=== PATIENT | male | born 2000 | race Caucasian/White ===

== ENCOUNTER 2021-01-17 11:55 | Emergency (ER) | payer BC, SELFPAY ==
[2021-01-17 11:56] VITALS: BP 151/103; PULSE 93; RESP 18; TEMP 36.8; O2SAT 97; BMI 34.9
[2021-01-17 12:00] VITALS: O2SAT 97
--- NOTE | 2021-01-17 12:05 | HMH.EDGENADL ---
ED Disposition Clinical Impression: Lymphadenopathy Disposition: Home, Self-Care Condition on Discharge: Good Instructions: DI for Acute Abdominal Pain Referrals: PCP,No [Primary Care Provider] - 3 days Time of Disposition: 15:12 - Critical Care Critical Care Time: No Attestation: On , the high probability of a clinically significant, sudden or life threatening deterioration of the following system(s) required my full and direct attention, intervention and personal management. The time I documented below is in addition to time spent performing reported procedures but includes the following listed in this critical care notation. Medical Decision Making - Zaid Inquiry Pt receiving controlled substance: No Vital Signs: 01/17/21 11:56 01/17/21 12:00 01/17/21 14:51 Temperature 98.3 F Temperature Source Oral Pulse Rate Pulse Rate [Left Radial] 93 H Respiratory Rate 18 Blood Pressure 153/96 H Blood Pressure [Right Arm] 151/103 H Blood Pressure Mean 116 Blood Pressure Mean [Right Arm] 119 Blood Pressure Source [Right Arm] Automatic Cuff Blood Pressure Position [Right Arm] Sitting 02 Sat by Pulse Oximetry 97 97 Oxygen Delivery Method Room Air 01/17/21 14:52 Temperature Temperature Source Pulse Rate 84 Pulse Rate [Left Radial] Respiratory Rate Blood Pressure Blood Pressure [Right Arm] Blood Pressure Mean Blood Pressure Mean [Right Arm] Blood Pressure Source [Right Arm] Blood Pressure Position [Right Arm] 02 Sat by Pulse Oximetry 98 Oxygen Delivery Method - Lab Data Lab Results 01/17/21 12:10: Urine Color Yellow, Urine Appearance Clear, Urine pH 6.0, Ur Specific [place] 1.025, Urine Protein Trace, Urine Glucose (UA) Negative, Urine Ketones Negative, Urine Blood Negative, Urine Nitrate Negative, Urine Bilirubin Negative, Urine Urobilinogen 0.2, Ur Leukocyte Esterase Negative, Urine RBC None, Urine WBC 3-5, Ur Squamous Epith Cells 3-5, Urine Bacteria None 01/17/21 12:10: WBC 8.0, RBC 5.54, Hgb 15.9, Hct 49.0, MCV 88.6, MCH 28.7, MCHC 32.4, RDW 13.4, Plt Count 216, MPV 8.1, Neut % (Auto) 76.0, Lymph % (Auto) 15.6, [place] % (Auto) 5.7, Eos % (Auto) 2.3, Baso % (Auto) 0.3, Neut # (Auto) 6.1, Lymph # (Auto) 1.3, [place] # (Auto) 0.5, Eos # (Auto) 0.2, Baso # (Auto) 0.0 Result diagrams: 01/17/21 12:10 - US Data US Images: Pelvis Findings Narrative: Single large lymph node with inflammatory reaction appreciated Medical Decision Narrative: 20yo M presents for right inguinal pain that he is concerned is a hernia. Patient denies any significant heavy lifting or more vigorous activity than usual. Lesion appeared while the patient was sleeping. No bug bite. Differential diagnosis includes but is not limited to: Hernia, enlarged lymph node, abscess. Patient is sent for an ultrasound for further characterization. Ultrasound most consistent with inflamed lymph node. Patient's vital signs are unremarkable he is appropriate stable for discharge home at this time. Discussed warm compresses and activity as tolerated. Discussed follow-up with PCP by the end of the week. Counseled the patient and his mother at bedside on return to emergency department parameters. General Adult HPI - General Chief complaint: Abdominal Pain Stated complaint: possible hernia pain in groin area Time Seen by Provider: 01/17/21 12:05 Mode of Arrival: Family Vehicle Limitations: No Limitations Description of Symptoms (Recalled from ER Triage Doc. by RN): Patient c/o low abdomen/groin pain that radiates into right testicle since last night. - History of Present Illness HPI narrative: 20yo M no significant medical history presents the emergency department secondary to a painful lump in his right groin. Lump has been there since at least Saturday. He denies fever, nausea/vomit/diarrhea. Denies local skin changes. Denies any known bug bites or other lesions. Denies previous episode. - Related Rocky
[2021-01-17 12:37] LABS: Microscopic, Urine URINE MICROSCOPIC (MICROSCOPIC)
[2021-01-17 12:41] LABS: Appearance,Urine CLEAR (Clear); Basophils % 0.3 % (0.1-2.0); Bilirubin,Urine Negative (Negative); Blood, Urine Negative (Negative); Color,Urine YELLOW (Yellow); Eosinophils # 0.2 K/mm3 (0.0-0.4); Eosinophils % 2.3 % (0.1-12.0); Glucose,Urine (UA) Negative (Negative); Hemoglobin 15.9 g/dL (14.1-18.0); Ketones,Urine Negative (Negative); Leukocyte Esterase,Urine Negative (Negative); Lymphocytes # 1.3 K/mm3 (0.7-4.5); Lymphocytes % 15.6 % (10-50); Mean Corpuscular HGB Conc 32.4 g/dL (31.8-35.4); Mean Corpuscular Hemoglobin 28.7 pg (27.0-31.2); Mean Corpuscular Volume 88.6 fl (80-94); Mean Platelet Volume 8.1 fl (7.4-10.4); Monocytes # 0.5 K/mm3 (0.1-1.0); Monocytes % 5.7 % (1.7-9.3); Neutrophils # 6.1 K/mm3 (1.8-7.8); Nitrate,Urine Negative (Negative); Platelet Count 216 K/mm3 (142-424); Protein,Urine TRACE (Negative); Red Blood Count 5.54 M/mm3 (4.60-6.20); Red Cell Distribution Width 13.4 % (11.5-17.5); Specific Gravity, Urine 1.025 (1.005-1.030); Urobilinogen,Urine 0.2 EU/dl (0.2)
--- NOTE | 2021-01-17 13:42 | PC.NURSE ---
MD at bedside discussing care.
--- NOTE | 2021-01-17 13:44 | US_ITS ---
PROCEDURE: US EXTREMITY RT LIMITED CLINICAL INDICATION: lump; r/o abscess vs hernia vs lymphnode Palpable abnormality in the right groin COMPARISON: No exams were available for comparison FINDINGS: Multiple small nodes are present in the right inguinal region. The largest measures 2 1 cm. There is isoechoic ill-defined tissue around this node consistent with inflammatory changes. No abscess or other significant anomaly evident. IMPRESSION: Mild right inguinal adenopathy with perinodal inflammation. No abscess apparent Dictated by: Antwan Dougherty MD 01/17/2021 14:26 Antwan Dougherty MD in [place] 01/17/2021 14:26
[2021-01-17 14:51] VITALS: BP 153/96
[2021-01-17 14:52] VITALS: PULSE 84; O2SAT 98
[2021-01-17 15:20] VITALS: BP 143/86; PULSE 78; RESP 18; TEMP 36.8; O2SAT 98
[2021-01-18 22:29] LABS: Neisseria gonorrhoeae, NAA Negative (Negative)
== END 2021-01-17 15:21 | disposition home or self-care (01) ==
PROVIDERS: Emergency Provider Family Medicine
DX: R59.0 Localized enlarged lymph nodes (principal)
CPT/HCPCS: 76882; 81001; 85025; 87491; 87591; 99283

== ENCOUNTER 2022-06-02 09:46 | Emergency (ER) | payer BC, SELFPAY ==
[2022-06-02 10:08] VITALS: BP 152/96; PULSE 104; RESP 16; TEMP 36.8; O2SAT 99; BMI 35.6
--- NOTE | 2022-06-02 10:20 | HMH.EDUTC ---
[facility] [place] Disposition Clinical Impression: Viral syndrome Disposition: Home, Self-Care Condition on Discharge: Good Instructions: DI for Viral Syndrome, Preventing the Spread of Coronavirus Discharge Instructions Additional Instructions: Drink plenty of fluids. Take tylenol or ibuprofen for pain or fever. Take the medications as directed. Follow up with your regular doctor. GO TO THE ER FOR ANY WORSENING SYMPTOMS Quarantine until you know the results of your covid-19 test. Notify your school or workplace of your results and follow their instructions regarding return to work/school. Prescriptions: Ondansetron [Zofran 4mg ODT] 4 mg PO Q8HP PRN #12 tab PRN Reason: Nausea Transmission Status: Received by [id number] Benzonatate [Benzonatate 100mg cap] 100 mg PO TIDP PRN #30 cap PRN Reason: Cough Transmission Status: Received by [id number] Referrals: Provider,Referral, [Primary Care Provider] - Forms: Work/School Release Time of Disposition: 10:23 Medical Decision Making - Medical Records Medical records reviewed: No: I reviewed the patient's medical records. - Zaid Inquiry Pt receiving controlled substance: No Vital Signs: 06/02/22 10:08 06/02/22 10:25 Temperature 98.3 F 98.3 F Temperature Source Oral Pulse Rate 104 H Pulse Rate [Left] 104 H Respiratory Rate 16 16 Blood Pressure 152/96 H Blood Pressure [Right Arm] 152/96 H Blood Pressure Mean [Right Arm] 114 02 Sat by Pulse Oximetry 99 [facility] [place] HPI - General Stated complaint: fever, sore throat, cough, no smell, weakness Time Seen by Provider: 06/02/22 10:21 Mode of Arrival: Ambulatory Source of Information: Patient Limitations: No Limitations Description of Symptoms (Recalled from Triage Doc. by RN): patient comes in for covid test. patient was exposed by a coworker. symptoms include cough, fever, loss of smell, congestion. symptoms began yesterday. HEENT Symptoms (Recalled from RN notes): Yes Resp Symptoms (Recalled from RN notes): Yes Skin Symptoms (Recalled from RN notes): No MS Symptoms (Recalled from RN notes): No Functional Status (Recalled from RN notes): n/a - Related Data Home Medications Medication Instructions Recorded Confirmed lisinopriL [Lisinopril] 10 mg PO DAILY 01/17/21 01/17/21 Previous Rx's Medication Instructions Recorded Benzonatate [Benzonatate 100mg 100 mg PO TIDP PRN #30 cap 06/02/22 cap] Ondansetron [Zofran 4mg ODT] 4 mg PO Q8HP PRN #12 tab 06/02/22 Allergies Allergy/AdvReac Type Severity Reaction Status Date / Time No Known Allergies Allergy Verified 06/02/22 10:12 - Worker's Comp Is this a Worker's Comp case?: No [facility] History - Hepatitis A Screen Attestation statement:: This patient has been screened for Hepatitis A risk factors. I have reviewed the patient's past medical history: Yes - Social History Smoking Status: Never smoker Alcohol Intake: never Occupational Status: employed ROS Obtained: Yes All systems reviewed & no additional complaints - Constitutional Constitutional: Reports as per HPI - Eyes Eyes: Denies eye discharge - ENT Ears, Nose, Mouth, and Throat: Reports as per HPI - Cardiovascular Cardiovascular: Denies chest pain - Respiratory Respiratory: Denies chest congestion, Reports cough Physical Exam - General General appearance: alert, in no apparent distress - Head Head exam: atraumatic, normocephalic, normal inspection - Eye Eye exam: Present: normal appearance, PERRL, EOMI - ENT ENT exam: Present: normal exam, normal oropharynx, mucous membranes moist, TM's normal bilaterally, normal external ear exam - Neck Neck exam: Present: normal inspection, full ROM, trachea midline. Absent: meningismus, lymphadenopathy - Chest Chest inspection: Present: normal inspection, symmetric chest wall rise. Absent: tenderness - Respiratory Respiratory exam: Present: normal lung
[2022-06-02 10:25] VITALS: BP 152/96; PULSE 104; RESP 16; TEMP 36.8
== END 2022-06-02 10:27 | disposition home or self-care (01) ==
PROVIDERS: Emergency Provider Nurse Practitioner Family
DX: B34.9 Viral infection, unspecified (principal); Z20.822 Contact with and (suspected) exposure to COVID-19; R50.9 Fever, unspecified; J02.9 Acute pharyngitis, unspecified; R05.9 Cough, unspecified
CPT/HCPCS: 99212; C9803; G0463; U0003; U0005

== ENCOUNTER 2022-10-18 14:08 | Emergency (ER) | payer BC, SELFPAY ==
--- NOTE | 2022-10-18 15:35 | EXP.UTC ---
Discharge Plan Disposition Patient Disposition: Home, Self-Care Condition: Good Prescriptions Prescriptions: New azithromycin [Zithromax] 250 mg tablet 250 mg PO UD DOSE PK Qty: 6 0RF Rx Instructions: Take two (2) tablets today, then one (1) tablet days #2 thru #5 benzonatate [benzonatate] 100 mg capsule 100 mg PO TIDP PRN (Reason: Cough) Qty: 30 0RF methylprednisolone 4 mg Tablets,Dose Pack 4 mg PO DIRECTED Qty: 21 0RF oseltamivir [Tamiflu] 75 mg capsule 75 mg PO BID Qty: 10 0RF No Action amlodipine 5 mg tablet 5 mg PO DAILY Label Comments: TAKE 1 TABLET BY MOUTH DAILY Referrals Follow up/Referrals: Provider,Referral, MD [Primary Care Provider] - See instructions Activity Restrictions/Add. Instructions Additional Instructions/Restrictions: Drink plenty of fluids. Take tylenol or ibuprofen for pain or fever. Take the medications as directed. Follow up with your regular doctor. GO TO THE ER FOR ANY WORSENING SYMPTOMS Clinical Impressions Clinical Impression: Viral syndrome, Bronchitis Stand Alone Forms Stand Alone Forms: Work/School Release Instructions Patient Instructions: DI for Pharyngitis/Tonsillopharyngitis -- Adult Discharge ED Provider: Candelario Huffman [facility] [place] [place] HPI General Stated complaint: Cough, fever, SOA, Congestion Time Seen by Provider: 10/18/22 15:34 History of Present Illness Provider Complaint: He states that for the past 2 days he has had chest congestion, sinus congestion, chills, sore throat and body aches. He has been exposed to both flu and strep. Related Data Home Medications Medication Instructions Recorded Confirmed amlodipine 5 mg tablet 5 mg PO DAILY Hypertension 10/18/22 10/18/22 Previous Rx's Medication Instructions Recorded azithromycin 250 mg tablet 250 mg PO UD DOSE PK #6 tabs 10/18/22 (Zithromax) benzonatate 100 mg capsule 100 mg PO TIDP PRN Cough #30 caps 10/18/22 methylprednisolone 4 mg tablets in 4 mg PO DIRECTED #21 tabs 10/18/22 a dose pack oseltamivir 75 mg capsule (Tamiflu) 75 mg PO BID #10 caps 10/18/22 Allergies Allergy/AdvReac Type Severity Reaction Status Date / Time No Known Allergies Allergy Verified 06/02/22 10:[address] [facility] Disclaimer: The information contained in this section may have been updated after the patient was seen, as this information can be updated by other users. Medical History Hypertension Social History Smoking Status: Never smoker alcohol intake: never current occupational status: employed Travel in the last 8 weeks: None ROS Obtained: Yes All systems reviewed & no additional complaints except as documented Constitutional Constitutional: Reports chills and Reports fever(s) Eyes Eyes: Denies eye discharge ENT Ears, Nose, Mouth, and Throat: Reports as per HPI Cardiovascular Cardiovascular: Denies chest pain Respiratory Respiratory: Denies chest congestion and Reports cough Gastrointestinal Gastrointestingal: Reports nausea; Denies abdominal pain, constipation, cramping, diarrhea or vomiting Musculoskeletal Musculoskeletal: Denies arthralgias Integumentary/Breasts Skin/Breast: Denies rash Neurologic Neurologic: Denies paresthesias Physical Exam General General appearance: alert and in no apparent distress Head Head exam: atraumatic, normocephalic and normal inspection Eye Eye exam: Present normal appearance, PERRL and EOMI ENT ENT exam: Present mucous membranes moist and normal external ear exam Expanded ENT Exam TM/Canal exam: Bilateral TM: erythema and bulging Nose exam: Absent sinus tenderness Mouth exam: Present normal external inspection; Absent drooling Teeth exam: Present normal inspection Throat exam: Present tonsillar erythema, tonsillomegaly and tonsillar exudate Neck Neck exam: Present normal inspection, full ROM and t
[2022-10-18 15:40] VITALS: BP 141/84; PULSE 89; RESP 19; TEMP 37; O2SAT 98; BMI 37.0
[2022-10-18 15:49] LABS: Coronavirus 19, PCR Not Detected (NotDetected); Influenza B, PCR Not Detected (NotDetected)
[2022-10-18 16:10] VITALS: BP 141/84; PULSE 89; RESP 19; TEMP 37; O2SAT 98
[2022-10-18 17:21] LABS: Influenza A, PCR Detected (NotDetected)
== END 2022-10-18 16:14 | disposition home or self-care (01) ==
PROVIDERS: Emergency Provider Nurse Practitioner Family
DX: J10.1 Influenza due to other identified influenza virus with other respiratory manifestations (principal); J40 Bronchitis, not specified as acute or chronic
CPT/HCPCS: 99212; C9803; G0463; U0003; U0005

== ENCOUNTER 2025-09-16 14:20 | Emergency (ER) | payer BC, SELFPAY ==
[2025-09-16 14:20] VITALS: BP 156/99; PULSE 87; RESP 14; TEMP 37.1; O2SAT 100; BMI 35.6
--- NOTE | 2025-09-16 14:38 | ED_ITS ---
<Statement entered by Jayy Pickett MD - 09/16/25 15:35> I was consulted by the KRISH, and we discussed the complexity of the problems being addressed. I approved the treatment and management plan for this patient's care in the emergency department, thus performing a substantive portion of the medical decision making. Jayy Pickett MD, CHRISTINA, FACEP Discharge Plan Disposition Patient Disposition: Home, Self-Care Condition: Good Prescriptions Prescriptions: New Preparation H 0.25-14-74.9 % ointment 1 applic [place] DAILY PRN (Reason: hemorrhoids) Qty: 28 0RF No Action amlodipine 5 mg tablet 5 mg PO DAILY Patient Comments: TAKE 1 TABLET BY MOUTH DAILY azithromycin [Zithromax] 250 mg tablet 250 mg PO UD DOSE PK Qty: 6 0RF Rx Instructions: Take two (2) tablets today, then one (1) tablet days #2 thru #5 benzonatate [benzonatate] 100 mg capsule 100 mg PO TIDP PRN (Reason: Cough) Qty: 30 0RF methylprednisolone 4 mg Tablets,Dose Pack 4 mg PO DIRECTED Qty: 21 0RF oseltamivir [Tamiflu] 75 mg capsule 75 mg PO BID Qty: 10 0RF Referrals Follow up/Referrals: Cierra Vines APRN [Primary Care Provider, Medical] - See instructions Nelson Ba II, MD [Staff Physician, Gastroenterology] - See instructions Activity Restrictions/Add. Instructions Additional Instructions/Restrictions: Please return to the emergency department with any worsening signs or symptoms. Please use Preparation H as needed for symptomatic relief. Please follow-up with your PCP or GI physician in the upcoming days/weeks if symptomatology does not improve. I recommend utilizing Epsom salts baths as well as stool softeners for other symptomatic relief Clinical Impressions Clinical Impression: Bleeding external hemorrhoids Instructions Patient Instructions: DI for Hemorrhoids, DI for Anal Fissure Print Language Print Language: Croatian Discharge ED Provider: Jayy Pickett General Adult HPI General Chief complaint: GI Bleed Stated complaint: rectal bleeding Time Seen by Provider: 09/16/25 14:37 Mode of Arrival: Ambulatory Source of Information: Patient Limitations: No Limitations History of Present Illness HPI narrative: 24-year-old male presents the emergency department with hematochezia that he noticed last night, bright red blood not enough to fill up the toilet bowl, noticed it on his toilet paper , patient did have some anal pain on Saturday and Saturday of this week, no pain over the last couple of days. No overt melena, no hematemesis no hemoptysis no abdominal pain no nausea no vomiting no diarrhea, no fever no chills no chest pain or shortness of breath, no urinary symptomatology, no hematuria, patient denies any alcohol tobacco or drug use, patient's past medical history excision with hypertension and prior brain surgery for cyst fenestration. Otherwise unremarkable past medical history. Initial triage vitals are unremarkable. Please note that above description of symptoms, in this electronic medical record under categorization of recalled from ER triage doctor by RN are reflective of an initial nursing assessment, however, is not reflective of my full history and physical exam that was personally taken and clarified. Co nsequentially, this preceding description of symptoms, which may include the patient's categorized chief complaint in the EMR, do not reflect my personal clinical impression, and the ultimate description of history of present illness and patient stated complaints should be deferred to this section of the note. Unless stated otherwise or congruent with this section of the note, additional signs, symptoms, or incongruence should be interpreted as inaccurate with my clinical impression. Onset (ago): day(s) Related Data Home Medications ?Medication ?Instructions ?Recorded ?Confirmed amlodipine 5 mg tablet 5 mg PO DAILY Hypertension 1 12/19/21 10/18/22 Previous Rx's ?Medication ?Instructions ?Recorded azithromycin 250 mg tablet 250 mg PO UD DOSE PK #6 tab s 10/18/22 (Zithromax) benzonatate 100 mg capsule 100 mg PO TIDP PRN Cough #3 0 caps 10/18/22 methylprednisolone 4 mg tablets in 4 mg PO DIRECTED #21 tabs 10/18/22 a dose pack oseltamivir 75 mg capsule (Tamiflu) 75 mg PO BID #10 c aps 10/18/22 phenylephrine 0.25 %-mineral oil 1 applic [place] DAILY PRN hemorrhoids 09/16/25 14 %-petrolatm 74.9 % rectal #28 grams ointment (Preparation H) Allergies Allergy/AdvReac Type Severity Reaction Status Date / Time No Known Allergies Allergy Verified 09/16/25 14:49 [facility] Disclaimer: The information contained in this section may have been updated after the patient was seen, as this information can be updated by other users. Medical History Hypertension Social History Smoking Status: Never smoker alcohol intake: never current occupational status: employed Travel in the last 8 weeks?: None Have you lived/traveled outside US in past 30 days?: No Contact w/someone who lives/traveled outside US past 30 days?: No Exposure to someone with infectious disease in past 14 days?: No Do you have a fever (greater than 100.4 F or 38 C)?: No Have you tested positive for COVID-19?: No Exposed to someone with COVID-19 in past 14 days?: No Do you have a sore throat?: No Do you have a cough?: No Do you have any weakness?: No Do you have any diarrhea?: No Are you experiencing any unusual bleeding?: No Do you have any muscle aches/pain?: No Do you have any abdominal pain?: No Are you experiencing loss of taste or smell?: No Other Medical History Have you received the Flu Vaccine for this season: No Have you received the Pneumonia Vaccine: No ROS Obtained: Yes All systems reviewed & no additional complaints except as documented Physical Exam General General appearance: alert and in no apparent distress Head Head exam: atraumatic and normocephalic Eye Eye exam: Present PERRL and EOMI ENT ENT exam: Present mucous membranes moist Neck Neck exam: Present normal inspection Chest Chest inspection: Present normal inspection and symmetric chest wall rise Respiratory Respiratory exam: Present normal lung sounds bilaterally; Absent respiratory distress Cardiovascular Cardiovascular exam: Present regular rate and normal rhythm Abdominal Exam Abdominal exam: Present soft; Absent tenderness, guarding, rebound or rigidity Rectal Exam Rectal exam: Present bloody stool and hemorrhoids comment: I along with nurse payment manager performed rectal examination at the bedside. There appears to be a mild hemorrhoid that is not strangulated not thrombosed at approximately 4:35 PM, there is some active bleeding/possibly small active bleeding anal fissure Extremities Exam Extremities exam: Present normal inspection Neurological Exam Neurological exam: Present alert and oriented X3 Psychiatric Psychiatric exam: Present normal affect Skin Skin exam: Present warm and dry Medical Decision Making Medical Records Medical records reviewed: Yes I reviewed the patient's medical records. Screening: Per USPSTF and CDC recommendations, given the prevalence of disease in our region, it is our hospital?s policy to screen for HIV and viral Hepatitis for all patients aged 18 and over and those with ongoing risk factors. Zaid Inquiry Pt receiving controlled substance: No Vital Signs: 09/16/25 14:20 Temperature 98.8 F Temperature Source Oral Pulse Rate [Left] 87 Respiratory Rate 14 Blood Pressure [Right Arm] 156/99 H Blood Pressure Mean [Right Arm] 118 Blood Pressure Source [Right Arm] Automatic Cuff Blood Pressure Position [Right Arm] Sitting 02 Sat by Pulse Oximetry 100 Oxygen Delivery Method Room Air Medical Decision Narrative: 24-year-old male presents to the emergency department with painless hematochezia that started last night differential diagnose include but not limited to anal fissure external hemorrhoids, internal hemorrhoids, constipation, diverticulosis among others. I discussed this patient's case in depth with the attending physician Dr. Pickett Patient has painless hematochezia no pain at this time, does have active bleeding small anal fissure at around 4:35 PM on rectal exam, with mild nonthrombosed nonstrangulated external hemorrhoid. I recommend stool softeners, sitz bath, Preparation H, follow-up with GI in the upcoming days. Patient was given strict ED return precautions. Patient voiced understanding and agreement with the current treatment plan/discharge plan. Patient has no hemoptysis hematemesis, no abdominal pain, he has remained hemodynamically stable without his time in the emergency department. Critical Care Critical Care Time Critical Care Time: No
--- OUTSIDE RECORDS SUMMARY | 2025-09-16 14:42 | XMS_ITS | Clinical Summary ---
Author Organization Healthcare Address [address] [place] [id number] Care Team Providers Care Internal Wholesaler Name Role Phone Unavailable Primary Care Provider Unavailabl e Immunizations Immunization Administration Dates Next Due DTaP 12/28/2002,01/30/2000,04/14/1999 ,02/10/1999,1998 Hep B, adult 01/30/2000,1998,1998 Hib (PRP-OMP) 01/30/2000,04/14/1999,02/10/1999 ,1998 IPV 12/28/2002,01/30/2000,02/10/1999 ,1998 MMR 12/28/2002,10/13/1999 Meningococcal MCV4P 01/23/2010 Tdap 01/23/2010 Varicella 01/23/2010,10/13/1999 Family History Medical History Relation Name Comments Hypertension Father Relation Name Status Comments Father Social History Tobacco Use Types Packs/Day Years Used Date Smoking Tobacco: Never Sex and Gender Information Value Date Recorded Sex Assigned at Not on file Legal Sex Male 8:28 PM EDT Gender Identity Not on file Sexual Orientation Not on file Last Filed Vital Signs Vital Sign Reading Time Taken Comments Blood Pressure - - Pulse - - Temperature - - Respiratory Rate - - Oxygen Saturation - - Inhaled Oxygen Concentration - - Weight 113 kg (250 lb) 11/26/2016 9:28 AM EST Height 188 cm (6' 2 ) 11/26/2016 9:28 AM EST Body Mass Index 32.1 11/26/2016 9:28 AM EST Plan of Treatment Not on file
--- NOTE | 2025-09-16 14:43 | PC.NURSE ---
I went bedside with Sharif to digital service engineer for the rectal exam.
[2025-09-16 15:00] VITALS: BP 135/85; PULSE 83; RESP 16; O2SAT 100
[2025-09-16 15:09] VITALS: BP 135/85; PULSE 83; RESP 16; TEMP 37.1; O2SAT 100
== END 2025-09-16 15:10 | disposition home or self-care (01) ==
PROVIDERS: Emergency Provider Student in an Organized Health Care Education/Training Program; PCP Nurse Practitioner
DX: K64.4 Residual hemorrhoidal skin tags (principal)
CPT/HCPCS: 99283